=== PATIENT | male | born 1935 | race Two or more races ===

== ENCOUNTER 2016-11-08 01:38 | Emergency (ER) | payer OTHER ==
[~2016-11-08] VITALS: Ht 172.7 cm; Wt 127.0 kg
[~2016-11-08 01:38] MED LIST: CARV25TA55; LISI40TA; SERT-160; SIMV10TA84; TERA2CAP45; [UNRECOGNIZED DRUG - SUPPLY]
[2016-11-08] MEDS ORDERED: EPINEPHrine HCL 1 MG/10 ML SYRG IV ONE (08:51)
[2016-11-08] MEDS ORDERED: SODIUM BICARBONATE 8.4% INJ 50ML SYRINGE IV ONE (08:51)
[2016-11-08] MEDS ORDERED: DEXTROSE (50%) 50ML SYRG IV ONE (08:51)
[2016-11-08] MEDS ORDERED: CALCIUM CHLOR(10%) 100MG/ML 10ML SYRINGE IV ONE (08:51)
== END 2016-11-08 01:56 | disposition expired ==
LOC: EDBD 01:38 → EDSEX 01:38 → ER 01:39
DX: I46.9 Cardiac arrest, cause unspecified (principal); I25.10 Atherosclerotic heart disease of native coronary artery without angina pectoris; I50.9 Heart failure, unspecified; E11.9 Type 2 diabetes mellitus without complications; E78.5 Hyperlipidemia, unspecified; I11.0 Hypertensive heart disease with heart failure; I25.2 Old myocardial infarction; Z95.0 Presence of cardiac pacemaker; Z88.8 Allergy status to other drugs, medicaments and biological substances
CPT/HCPCS: 51702; 92950; 99285; J0171; J7042